=== PATIENT | female | born 1960 | race Caucasian/White ===

== ENCOUNTER → 2022-05-31 | Outpatient (CLI) | payer OTHER | LOC: EMI 16:11 | DX: M51.16 Intervertebral disc disorders with radiculopathy, lumbar region (principal); M51.27 Other intervertebral disc displacement, lumbosacral region; M47.817 Spondylosis without myelopathy or radiculopathy, lumbosacral region; M48.07 Spinal stenosis, lumbosacral region; Q76.49 Other congenital malformations of spine, not associated with scoliosis | CPT/HCPCS: 72148 ==